=== PATIENT | male | born 1960 | race Caucasian/White ===

== ENCOUNTER → 2019-07-19 15:42 | Outpatient (CLI) | payer BC, SELFPAY ==
[2017-09-01 06:42] VITALS: BMI 33.6
== END ==
PROVIDERS: Family Provider Family Medicine; PCP Family Medicine; Referring Provider Otolaryngology; Visit Provider Otolaryngology
DX: H66.92 Otitis media, unspecified, left ear (principal); H72.92 Unspecified perforation of tympanic membrane, left ear
CPT/HCPCS: 87070; 87075; 87076; 87205